=== PATIENT | male | born 1985 | race Caucasian/White ===

== ENCOUNTER 2025-02-15 12:24 | Emergency (ER) | payer SELFPAY ==
[2025-02-15 12:33] VITALS: BP 134/94; PULSE 94; RESP 18; TEMP 37.2; O2SAT 98; BMI 23.7
--- NOTE | 2025-02-15 13:46 | ED.DENTAL ---
HPI - Dental/Oral <Nicic Arriaga PA-C - Last Filed: 02/15/25 19:06> General Chief complaint: Dental/Oral Stated complaint: tooth issues wants referral, not sleeping in pain Time Seen by Provider: 02/15/25 13:45 Source: patient and family Mode of arrival: Ambulatory History of Present Illness HPI Narrative: Mr. Christopher as a pleasant 39-year-old male with a past medical history of autism spectrum disorder presents to the emergency department with his mom for left lower dental pain x3 days. Patient had a prior root canal on this tooth, the tooth has since broken off and he is now experiencing acute pain of the left lower molar. He feels like his face is swelling as well and this area. He attempted to go to work today but had to leave due to the pain. He attempted to self medicate with alcohol and marijuana is now intoxicated. No fevers, chills, difficulty breathing swallowing or speaking. He took a leave early this morning which helped with the pain temporarily. Tylenol is not helping with the pain. Topical numbing is very helpful. Related Data Previous Rx's ?Medication ?Instructions ?Recorded amoxicillin 875 mg-potassium 1 tab PO BID 10 days #20 tabs 02/15/25 clavulanate 125 mg tablet Allergies Allergy/AdvReac Type Severity Reaction Status Date / Time No Known Drug Allergies Allergy Verified 02/15/25 12:34 Review of Systems <Nicci Arriaga PA-C - Last Filed: 02/15/25 19:06> Review of Systems ROS Unobtainable: All systems reviewed & are unremarkable except as noted in HPI and below Patient History <Nicci Arriaga PA-C - Last Filed: 02/15/25 19:06> Social History Smoking Status: Current every day smoker Smoking Status: Current every day smoker tobacco type: cigarettes and vaping Alcohol type: wine Exam <Nicci Arriaga PA-C - Last Filed: 02/15/25 19:06> Narrative Exam Narrative: GENERAL: 39 year old patient appears stated age. Well-developed patient, in no acute distress. HEAD: Atraumatic. Normocephalic. EYES: No scleral icterus. No injection or drainage. ENT: Chronic poor dentition throughout. Patient has focal tenderness to palpation of left lower molar 19. There is prior root canal with surrounding tooth missing. No surrounding gingival erythema or edema. No intraoral abscess or fluctuance. Oropharynx is widely patent and floor of the mouth is soft. NECK: Trachea midline. Cervical ROM intact. CARDIOVASCULAR: Regular rate RESPIRATORY: ?Nonlabored respirations. ?Speaking in clear, full sentences. NEURO: Alert and oriented, is able to provide his own history and answers all questions, does turn to his mom for support occasionally. Moves all extremities appropriately. No facial asymmetry. SKIN: No rash or erythema of visible areas Initial Vital Signs Initial Vital Signs: Vital Signs Temperature 98.9 F 02/15/25 12:33 Pulse Rate 94 H 02/15/25 12:33 Respiratory Rate 18 02/15/25 12:33 Blood Pressure 134/94 H 02/15/25 12:33 Pulse Oximetry 98 02/15/25 12:33 Oxygen Delivery Method Room Air 02/15/25 12:33 <Jackelin Lopez MD - Last Filed: 02/17/25 19:13> Initial Vital Signs Initial Vital Signs: Vital Signs Temperature 98.9 F 02/15/25 12:33 Pulse Rate 94 H 02/15/25 12:33 Respiratory Rate 18 02/15/25 12:33 Blood Pressure 134/94 H 02/15/25 12:33 Pulse Oximetry 98 02/15/25 12:33 Oxygen Delivery Method Room Air 02/15/25 12:33 Course <Nicci Arriaga PA-C - Last Filed: 02/15/25 19:06> Orders Ordered: Discontinued Medications Al Hydrox/Mg Hydrox/Simethicone 30 ml/ Lidocaine HCl 15 ml 0 ml PO NOW ONE Stop: 02/15/25 14:39 Last Admin: 02/15/25 14:59 Dose: 20 ml Documented By: MARGARITA Sodium Chloride (Normal Saline 0.9%) 1,000 mls @ 1,000 mls/hr IV BOLUS ONE Stop: 02/15/25 17:34 Last Infusion: 02/15/25 17:35 Dose: Infused Documented By: Admin: 02/15/25 16:53 Dose: 1,000 mls/hr Documented By: RB Ketorolac Tromethamine (Ketorolac 30 Mg/Ml Vial) 30 mg IM NOW ONE Stop: 02/15/25 14:04 Last Admin: 02/15/25 14:10 Dose: 30 mg Documented By: RB Nicotine (Nicotine 21 Mg Patch) 21 mg TOP NOW ONE Stop: 02/15/25 15:18 Last Admin: 02/15/25 15:21 Dose: 21 mg Documented By: RB Vital Signs Vital signs: Vital Signs - 8 hr 02/15/25 12:33 02/15/25 15:28 02/15/25 16:35 Temperature 98.9 F Pulse Rate 94 H 88 106 H Respiratory Rate 18 18 24 Blood Pressure 134/94 H 125/85 88/53 L Pulse Oximetry 98 98 92 Oxygen Delivery Method Room Air Room Air Room Air 02/15/25 17:08 02/15/25 17:45 Temperature 98.0 F Pulse Rate 81 88 Respiratory Rate 20 Blood Pressure 102/56 L 104/56 L Pulse Oximetry 99 Oxygen Delivery Method Room Air <Jackelin Lopez MD - Last Filed: 02/17/25 19:13> Orders Ordered: Discontinued Medications Al Hydrox/Mg Hydrox/Simethicone 30 ml/ Lidocaine HCl 15 ml 0 ml PO NOW ONE Stop: 02/15/25 14:39 Last Admin: 02/15/25 14:59 Dose: 20 ml Documented By: MARGARITA Sodium Chloride (Normal Saline 0.9%) 1,000 mls @ 1,000 mls/hr IV BOLUS ONE Stop: 02/15/25 17:34 Last Infusion: 02/15/25 17:35 Dose: Infused Documented By: Admin: 02/15/25 16:53 Dose: 1,000 mls/hr Documented By: RB Ketorolac Tromethamine (Ketorolac 30 Mg/Ml Vial) 30 mg IM NOW ONE Stop: 02/15/25 14:04 Last Admin: 02/15/25 14:10 Dose: 30 mg Documented By: RB Nicotine (Nicotine 21 Mg Patch) 21 mg TOP NOW ONE Stop: 02/15/25 15:18 Last Admin: 02/15/25 15:21 Dose: 21 mg Documented By: RB Vital Signs Vital signs: Vital Signs - 8 hr 02/15/25 12:33 02/15/25 15:28 02/15/25 16:35 Temperature 98.9 F Pulse Rate 94 H 88 106 H Respiratory Rate 18 18 24 Blood Pressure 134/94 H 125/85 88/53 L Pulse Oximetry 98 98 92 Oxygen Delivery Method Room Air Room Air Room Air 02/15/25 17:08 02/15/25 17:45 Temperature 98.0 F Pulse Rate 81 88 Respiratory Rate 20 Blood Pressure 102/56 L 104/56 L Pulse Oximetry 99 Oxygen Delivery Method Room Air MDM - Dental/Oral <Nicci Arriaga PA-C - Last Filed: 02/15/25 19:06> Lab Data 02/15/25 14:40 02/15/25 14:40 Labs: Lab Results 02/15/25 Range/Units 14:40 WBC 5.8 (4.5-11.0) X10^3/uL RBC 4.56 (4.5-5.9) X10^6/uL Hgb 14.6 (13.5-17.5) g/dL Hct 41.5 (41-53) % MCV 91.0 (80-100) fL MCH 32.1 (26-34) PG MCHC 35.2 (30-36) % RDW 13.7 (11.6-14.8) % Plt Count 287 (150-400) X10^3/uL Neut % (Auto) 28.8 L (50-75) % Lymph % (Auto) 62.9 H (25-40) % [place] % (Auto) 6.2 (3-14) % Eos % (Auto) 1.4 L (2-4) % Baso % (Auto) 0.7 (0-2) % Neut # (Auto) 1700 (4823-1915) /uL Lymph # (Auto) 3700 (2125-8118) /uL [place] # (Auto) 400 (0-900) /uL Eos # (Auto) 100 (0-450) /uL Baso # (Auto) 0 (0-100) /uL Sodium 146 H (137-145) mmol/L Potassium 4.4 (3.4-5.1) mmol/L Chloride 111 H (98-107) mmol/L Carbon Dioxide 23 (22-32) mmol/L BUN 10 (9-20) mg/dL Creatinine 0.81 (0.66-1.25) mg/dL Estimated GFR > 60 (>60) mL/min BUN/Creatinine Ratio 12.3 (6-22) Glucose 107 H (70-99) mg/dL Calcium 8.7 (8.4-10.2) mg/dL Total Bilirubin 0.5 (0.2-1.3) mg/dL AST 46 (17-59) IU/L ALT 32 (<50) IU/L Alkaline Phosphatase 95 (38-126) U/L Total Creatine Kinase 149 (55-170) U/L Troponin I < 0.012 (0.01-0.034) ng/mL Total Protein 8.2 (6.3-8.2) g/dL Albumin 4.6 (3.5-5.0) g/dL Globulin 3.6 (1.7-4.1) g/dL Albumin/Globulin Ratio 1.3 (1.0-2.8) Lipase 88 (23-300) U/L Ethyl Alcohol 375 H (<10) mg/dL Imaging Data Chest x-ray: Radiologist's Impression: PROCEDURE: XR CHEST 1V INDICATIONS: chest pain TECHNIQUE: One view of the chest was acquired. COMPARISON: None. FINDINGS: Surgical changes and devices: None. Lungs and pleura: Lungs are clear. No pleural effusions or pneumothorax. Mediastinum: Mediastinal contours appear normal. Heart size is normal. Bones and chest wall: No suspicious bony lesions. Overlying soft tissues appear unremarkable. IMPRESSION: No acute pulmonary process. Dictated by: Eliane Colvin M.D. on 02/15/2025 at 15:25 Approved by: Eliane Colvin M.D. on 02/15/2025 at 15:25 ECG Data Prior ECG tracings: not available for review Interpretation: ECG reveals normal sinus rhythm with a rate of 83 beats per minute. No axis deviation. [facility] Narrative Medical decision making narrative: 39-year-old male with a past medical history of autism spectrum disorder presents to the emergency department with his mom for left lower dental pain x3 days. Differential diagnosis includes but is not limited to fractured tooth, dental decay, dental wanda, pulpitis, dental abscess, etc. On exam patient is in no acute distress, nontoxic appearing, vital signs appropriate. He is currently intoxicated with marijuana and alcohol. He is able to answer all questions appropriately, ambulate independently. He has a visible prior root canal of left lower molar 19. That is tender to percussion. No surrounding signs of abscess. We will treat possible pulpitis with Augmentin b.i.d. x 10 days, treat pain with IM Toradol in addition to some local lidocaine at #19. 1430: Entered the room to apply lidocaine 2 patient is to use, patient has mom informed me that he would also like to be evaluated for chest pain and shortness of breath radiating to left arm since this morning. Upon further discussion, patient states that he has actually had this chest pain for many years. He went to bed having the chest pain last night. It is constant in nature, describes it on the left side of the chest with occasional radiation down the arm. He feels like it is painful to breathe with this chest pain as well. Reports that 20 years ago he wore a 24 hour monitor that did not show any arrhythmias. He otherwise has no known cardiac disease. Lungs are clear to auscultation bilaterally, abdomen is soft and nontender. ECG, CXR, labs ordered. 1540: 0.5 cc of lido 1% w/ epi injected into gingival fold at base of tooth#19. Patient reports resolvment of pain. During patient's ED stay, a CIWA score was performed and patient has scored high however after further discussion with the patient he reports that many of the symptoms he described experiencing he has actually been experiencing for many years such as seeing shadows. He has not diaphoretic, having any tremors or spasms, he has not nauseous and denies pain actually reports that he feels much better than he is felt in a very long time. He has received a L of IV fluids in addition to the Toradol, GI cocktail and local dental block performed earlier and he is feeling very well. His mom is here and able to take him home. Discussed the importance of avoiding excess alcohol use and provided him with a printed list of local dentists for further management of his dental concerns. Labs reveal normal WBC count of 5.8, hemoglobin 14.6 hematocrit 41.5. Sodium 146, potassium 4.4, chloride 111. BUN 10 creatinine 0.81. Glucose 107. Normal LFTs. Normal lipase 88. Negative/undetectable troponin. Alcohol level is 375. Chest x-ray is negative. Recommended rest, hydration, completion of antibiotics for dental infection, use of ibuprofen Tylenol and Orajel for pain. Patient has mom verbalized understanding of all information agreeable to the plan. I also discussed the importance of following up with the primary care doctor to discuss all of his chronic concerns. He is agreeable with the plan and stable for discharge home. <Jackelin Lopez MD - Last Filed: 02/17/25 19:13> Lab Data Labs: Lab Results 02/15/25 Range/Units 14:40 WBC 5.8 (4.5-11.0) X10^3/uL RBC 4.56 (4.5-5.9) X10^6/uL Hgb 14.6 (13.5-17.5) g/dL Hct 41.5 (41-53) % MCV 91.0 (80-100) fL MCH 32.1 (26-34) PG MCHC 35.2 (30-36) % RDW 13.7 (11.6-14.8) % Plt Count 287 (150-400) X10^3/uL Neut % (Auto) 28.8 L (50-75) % Lymph % (Auto) 62.9 H (25-40) % [place] % (Auto) 6.2 (3-14) % Eos % (Auto) 1.4 L (2-4) % Baso % (Auto) 0.7 (0-2) % Neut # (Auto) 1700 (2927-8508) /uL Lymph # (Auto) 3700 (7952-4954) /uL [place] # (Auto) 400 (0-900) /uL Eos # (Auto) 100 (0-450) /uL Baso # (Auto) 0 (0-100) /uL Sodium 146 H (137-145) mmol/L Potassium 4.4 (3.4-5.1) mmol/L Chloride 111 H (98-107) mmol/L Carbon Dioxide 23 (22-32) mmol/L BUN 10 (9-20) mg/dL Creatinine 0.81 (0.66-1.25) mg/dL Estimated GFR > 60 (>60) mL/min BUN/Creatinine Ratio 12.3 (6-22) Glucose 107 H (70-99) mg/dL Calcium 8.7 (8.4-10.2) mg/dL Total Bilirubin 0.5 (0.2-1.3) mg/dL AST 46 (17-59) IU/L ALT 32 (<50) IU/L Alkaline Phosphatase 95 (38-126) U/L Total Creatine Kinase 149 (55-170) U/L Troponin I < 0.012 (0.01-0.034) ng/mL Total Protein 8.2 (6.3-8.2) g/dL Albumin 4.6 (3.5-5.0) g/dL Globulin 3.6 (1.7-4.1) g/dL Albumin/Globulin Ratio 1.3 (1.0-2.8) Lipase 88 (23-300) U/L Ethyl Alcohol 375 H (<10) mg/dL Discharge Plan Departure Patient Disposition: Home Clinical Impression: Pain, dental, Atypical chest pain Alcohol intoxication Qualifiers: Complication of substance-induced condition: uncomplicated Qualified Code(s): F10.920 - Alcohol use, unspecified with intoxication, uncomplicated Instructions: DI for Dental Pain Activity Restrictions/Additional Instructions: Dear Ashwin, Thank you for coming to the emergency department. Today you were evaluated for dental pain. You received an injection of Toradol pain medication and a local dental numbing injection. I would like you to apply Orajel directly to the painful tooth, complete the full course of oral antibiotics, and also use ibuprofen and Tylenol if needed for breakthrough pain. Please avoid using alcohol to help with the pain as this puts you at risk for injuries and other medical problems. Please see the attached list of dentists to follow up with a soon as possible for further management. Please take Ibuprofen (Motrin/Advil) or Acetaminophen (Tylenol) for pain. These are available over the counter. You may take Ibuprofen 600 mg every 8 hours with food for pain. You may also take Acetaminophen 650 mg every 4-6 hours for pain. Do not exceed 3000 mg of Tylenol a day as this can cause liver damage. Do not drink alcohol with either of these medications. Please follow up with your primary care doctor within the next 2-3 days for ER follow-up. (If you do not have a PCP you can call [phone]. ?to schedule an appointment with an [facility] Primary Care Provider) IF YOU DEVELOP ANY NEW OR WORSENING SYMPTOMS, RETURN TO THE ER! Please read the attached instructions, they highlight more specific treatments and interventions for you at home. Thank you for letting me participate in your care, Nicci Arriaga PA-C Prescriptions: New amoxicillin-pot clavulanate 875-125 mg tablet 1 tab PO BID 10 Days Qty: 20 0RF Stand Alone Forms: Patient Portal/API, Work Release Note ED Sign-out <Jackelin Lopez MD - Last Filed: 02/17/25 19:13> Cosign ED Attending Cosignature Attestation: I was immediately available in the department for consultation throughout this patient's visit. Jackelin Lopez MD
[2025-02-15] MEDS: KETOROLAC 30 MG/ML VIAL IM (14:10)
--- NOTE | 2025-02-15 14:36 | DI.RAD.S_ITS ---
PROCEDURE: XR CHEST 1V INDICATIONS: chest pain TECHNIQUE: One view of the chest was acquired. COMPARISON: None. FINDINGS: Surgical changes and devices: None. Lungs and pleura: Lungs are clear. No pleural effusions or pneumothorax. Mediastinum: Mediastinal contours appear normal. Heart size is normal. Bones and chest wall: No suspicious bony lesions. Overlying soft tissues appear unremarkable. IMPRESSION: No acute pulmonary process. Dictated by: Eliane Colvin M.D. on 02/15/2025 at 15:25 Approved by: Eliane Colvin M.D. on 02/15/2025 at 15:25
--- NOTE | 2025-02-15 14:36 | EKG_ITS ---
[facility] [address] [place] [address] Test Date: 2025-02-15 Pat Name: Pipe Christopher Department: [facility] Room: Gender: Male Assistant Designer: : 1985 Requested By: Order Number: [id number] Reading MD: Caesar Pearl Measurements Intervals [place] Rate: 83 P: 27 VT: 128 QRS: 66 QRSD: 84 T: 48 QT: 350 QTc: 411 Interpretive Statements Normal sinus rhythm Electronically Signed On 03-02-2025 8:08:00 PDT by Caesar Pearl
--- NOTE | 2025-02-15 14:47 | PC.NURSE ---
Pt reporting chest pain at this time. reports it has been constant under his left arm for years since about 2010. No changes in the way it feels compared to every day pain. reports SOB. Pt has been extremely talkative and lauughing and is speaking in full sentences. playing on cell phone. appears pleasantly intoxicated. mother at side and confirms intoxication. pt states he is a daily drinker. unclear how much he drank prior to ED visit today.
[2025-02-15 14:58] LABS: Add Manual Diff / Slide Review NO; Hematocrit 41.5 % (41-53); Hemoglobin 14.6 g/dL (13.5-17.5); Lymphocytes Absolute Auto 3700 /uL (1100-4500); Mean Corpuscular HGB Conc 35.2 % (30-36); Mean Corpuscular Hemoglobin 32.1 PG (26-34); Mean Corpuscular Volume 91.0 fL (80-100); Platelet Count 287 X10^3/uL (150-400)
[2025-02-15] MEDS: MAG HYDROX/ALUMINUM/SIMETH SUS 30 ML, LIDOCAINE VISCOUS 2% 15 ML PO (14:59)
[2025-02-15 15:07] LABS: Alanine Aminotransferase 32 IU/L (<50); Albumin 4.6 g/dL (3.5-5.0); Albumin Globulin Ratio 1.3 (1.0-2.8); Alkaline Phosphatase 95 U/L (38-126); Blood Urea Nitrogen 10 mg/dL (9-20); Calcium 8.7 mg/dL (8.4-10.2); Carbon Dioxide 23 mmol/L (22-32); Chloride 111 mmol/L (98-107); Creatine Kinase 149 U/L (55-170); Estimated Glomerular Filt Rate > 60 mL/min (>60); Globulin 3.6 g/dL (1.7-4.1); Glucose 107 mg/dL (70-99); HEMOLYSIS < 15 (0-50); Lipase 88 U/L (23-300); Potassium 4.4 mmol/L (3.4-5.1); Sodium 146 mmol/L (137-145); Total Protein 8.2 g/dL (6.3-8.2)
[2025-02-15] MEDS: NICOTINE 21 MG PATCH TOP (15:21)
[2025-02-15 15:28] VITALS: BP 125/85; PULSE 88; RESP 18; O2SAT 98
[2025-02-15 15:46] LABS: Ethanol (ETOH) 375 mg/dL (<10)
[2025-02-15 15:47] LABS: Troponin I < 0.012 ng/mL (0.01-0.034)
[2025-02-15 16:35] VITALS: BP 88/53; PULSE 106; RESP 24; O2SAT 92
[2025-02-15] MEDS: SODIUM CHLORIDE 0.9% 1,000 ML 1000 ML IV (16:53)
--- NOTE | 2025-02-15 16:55 | PC.NURSE ---
This RN assessed patient for CIWA and got 12 as current rating. Provider informed.
[2025-02-15 17:08] VITALS: BP 102/56; PULSE 81
[2025-02-15 17:45] VITALS: BP 104/56; PULSE 88; RESP 20; TEMP 36.7; O2SAT 99
== END 2025-02-15 17:47 | disposition home or self-care (01) ==
PROVIDERS: Emergency Provider Physician Assistant
DX: K08.89 Other specified disorders of teeth and supporting structures (principal); R07.89 Other chest pain; F10.920 Alcohol use, unspecified with intoxication, uncomplicated
CPT/HCPCS: 36415; 71045; 80053; 80320; 82550; 83690; 84484; 85025; 93005; 96360; 96372; 99284; J1885